=== PATIENT | female | born 1975 ===

== ENCOUNTER 2022-12-04 18:52 | Outpatient (REF) | payer MEDICAID, OTHER, SELFPAY ==
[2022-12-04 20:33] LABS: Influenza A PCR NEGATIVE; Influenza B PCR NEGATIVE; Resp Syncy Virus RNA Qual PCR NEGATIVE (Negative); SARS COV2 PCR INHOUSE NEGATIVE
[2022-12-05 03:21] LABS: CT PCR NOT DETECTED (Not Detect.); NG PCR NOT DETECTED (Not Detect.)
[2022-12-05 09:38] LABS: BV Int Neg Control Negative; BV Int Pos Control Positive
== END 2022-12-04 18:53 | disposition home or self-care (01) ==
LOC: HO.HHCLNP 18:52
PROVIDERS: Visit Provider Family Medicine
DX: J02.9 Acute pharyngitis, unspecified (principal); N89.8 Other specified noninflammatory disorders of vagina; Z20.822 Contact with and (suspected) exposure to COVID-19
CPT/HCPCS: 0241U; 0353U; 87070; 87480; 87510; 87660

== ENCOUNTER 2023-10-23 12:18 | Outpatient (REF) | payer MEDICAID, SELFPAY ==
--- NOTE | ~2023-10-23 | XR_ITS ---
EXAMINATION: XR CERVICAL SPINE CLINICAL INFORMATION: Neck pain COMPARISON: None available. TECHNIQUE: 3 views of the cervical spine were obtained. FINDINGS: Bone alignment is normal. No fracture or dislocation. Mild degenerative spondylosis at C4-5 and C5-6. Normal disc spaces. Normal prevertebral soft tissues. XR/XR cervical spine 3V IMPRESSION: Mild degenerative spondylosis at C4-5 and C5-6.
== END 2023-10-23 12:19 | disposition home or self-care (01) ==
LOC: HO.HHCX 12:18
PROVIDERS: Visit Provider General Practice
DX: M54.2 Cervicalgia (principal)
CPT/HCPCS: 72040

== ENCOUNTER 2023-11-06 15:48 | Outpatient (REF) | payer MEDICAID, OTHER, SELFPAY ==
[2023-11-06 17:04] LABS: MANUAL DIFF FLAG NO
[2023-11-06 17:19] LABS: Estimated Average Glucose 114 mg/dL; Hemoglobin A1c % 5.6 % (<6.0)
[2023-11-06 17:32] LABS: Basophils Percent Auto 0.2 % (0-2); Eosinophils Absolute Auto 0.1 X10*3/uL (0.0-0.4); Eosinophils Percent Auto 1.6 % (0-4); Hematocrit 35.3 % (37.0-47.0); Hemoglobin 11.8 g/dl (12.0-16.0); Imm Gran Abs Auto 0.02 X10*3/uL (0.00-0.03); Imm Gran Pct Auto 0.4 % (0.0-0.4); Lymphocytes Absolute Auto 1.4 X10*3/uL (1.2-4.9); Mean Corpuscular HGB Conc 33.4 g/dl (31.0-35.0); Mean Corpuscular Hemoglobin 30.3 pg (27.0-33.0); Mean Corpuscular Volume 90.7 fL (80.0-98.0); Mean Platelet Volume 11.1 fL (9.4-12.3); Monocytes Absolute Auto 0.4 X10*3/uL (0.1-1.2); Monocytes Percent Auto 8.5 % (2-11); Neutrophils Percent Auto 61.3 % (45-73); Platelet Count 224 X10*3/uL (160-400); Red Blood Count 3.89 X10*6/uL (4.20-5.50); Red Cell Distribution Width 13.6 % (11.0-16.0); White Blood Count 4.9 X10*3/uL (4.8-10.8)
[2023-11-06 17:47] LABS: Alanine Aminotransferase 15 U/L (0-31); Alkaline Phosphatase 81 U/L (39-117); Anion Gap 10 (12-20); Aspartate Amino Transferase 15 U/L (5-31); Bilirubin Total 0.3 mg/dL (0.0-1.0); Blood Urea Nitrogen 18 mg/dL (9-16); C Reactive Protein 0.13 mg/dL (< or = 0.50); Calcium 8.7 mg/dL (8.4-10.2); Carbon Dioxide 25 mmol/L (22-29); Chloride 111 mmol/L (96-108); Estimated Glomerular Filt Rate > 60; Glucose Random 113 mg/dL (60-115); Potassium 3.9 mmol/L (3.3-5.1); Sodium 142 mmol/L (135-145); Total Protein 6.6 g/dL (6.5-8.0)
[2023-11-06 18:51] LABS: Erythrocyte Sedimentation Rate 6 MM/HR (0-20)
== END 2023-11-06 15:49 | disposition home or self-care (01) ==
LOC: HO.HHCL 15:48
PROVIDERS: Visit Provider General Practice
DX: G44.52 New daily persistent headache (NDPH) (principal)
CPT/HCPCS: 36415; 80053; 83036; 84443; 85025; 85652; 86140

== ENCOUNTER 2024-09-29 17:38 | Outpatient (REF) | payer MEDICAID, OTHER, SELFPAY | END 2024-09-29 17:39 | disposition home or self-care (01) | LOC: HO.HHCLNP 17:38 | PROVIDERS: Visit Provider Family Medicine | DX: L03.039 Cellulitis of unspecified toe (principal) | CPT/HCPCS: 87070; 87077; 87186; 87205 ==